=== PATIENT | male | born 1995 | race Hispanic/Latino ===

== ENCOUNTER 2020-06-16 13:23 | Emergency (ER) | payer OTHER ==
[~2020-06-16] VITALS: Ht 170.2 cm; Wt 70.5 kg
[2020-06-16] MEDS ORDERED: FLON1SPR NARES (15:09)
[2020-06-16] MEDS ORDERED: IBUP-1022 PO (15:09)
[2020-06-16] MEDS ORDERED: PSEU30TA85 PO (15:09)
[2020-06-16 15:12] VITALS: BP 130/78
== END 2020-06-16 15:26 | disposition home or self-care (01) ==
LOC: M ED 13:23
DX: H65.01 Acute serous otitis media, right ear (principal); Z88.5 Allergy status to narcotic agent

== ENCOUNTER 2020-07-01 05:48 | Emergency (ER) | payer OTHER ==
[~2020-07-01] VITALS: Ht 170.2 cm; Wt 73.0 kg
[~2020-07-01 05:48] MED LIST: FLON1SPR NARES; IBUP-1022 PO; PSEU30TA85 PO
[2020-07-01] MEDS ORDERED: METOCLOPRAMIDE INJ 10MG/2ML VIAL (J2765 PER 1) IV ONE (07:05)
[2020-07-01] MEDS ORDERED: KETOROLAC 30 MG/ML 1ML VIAL IV ONE (07:05)
[2020-07-01] MEDS ORDERED: NS 1,000 ML IV ONE (07:05)
[2020-07-01] MEDS ORDERED: ACETAMINOPHEN 500 MG TAB PO ONE (07:05)
[2020-07-01 09:59] VITALS: BP 123/67
== END 2020-07-01 10:01 | disposition home or self-care (01) ==
LOC: M ED 05:48
DX: G43.909 Migraine, unspecified, not intractable, without status migrainosus (principal); Z86.16 Personal history of COVID-19; Z88.5 Allergy status to narcotic agent
CPT/HCPCS: 96361; 96374; 96375; 99284; J1885; J2765

== ENCOUNTER 2021-10-24 12:05 | Emergency (ER) | payer OTHER ==
[~2021-10-24] VITALS: Ht 170.2 cm; Wt 75.0 kg
[2021-10-24 12:05] VITALS: BP 136/83
[~2021-10-24 12:05] MED LIST changes: -PSEU30TA85 PO; +PSEU30TA86 PO
== END 2021-10-24 15:40 | disposition home or self-care (01) ==
LOC: M ED 12:05
DX: M25.572 Pain in left ankle and joints of left foot (principal); Z88.5 Allergy status to narcotic agent

== ENCOUNTER → 2022-07-31 | Outpatient (CLI) | payer OTHER | LOC: M PLAIMG 11:43 | PROVIDERS: ATTEND Nurse Practitioner Family | DX: R05.9 Cough, unspecified (principal); M25.562 Pain in left knee ==

== ENCOUNTER → 2022-11-02 | Outpatient (CLI) | payer OTHER | LOC: M PLARAD 14:53 | PROVIDERS: ATTEND Physician Assistant | DX: M65.872 Other synovitis and tenosynovitis, left ankle and foot (principal); M65.272 Calcific tendinitis, left ankle and foot ==